=== PATIENT | female | born 1970 | race Caucasian/White ===

== ENCOUNTER → 2016-08-16 | Outpatient (CLI) | payer BC ==
--- NOTE | 2016-08-16 10:58 | RAD ---
MR of the right knee HISTORY: Worsening right knee pain with crepitus for 1 week. No known injury. TECHNIQUE: Routine multiplanar sequences were obtained. FINDINGS: Mild signal within the medial meniscus without evidence of a tear. Mild signal within the lateral meniscus with mild irregularity at the free margin at the undersurface, raising the question of a small tear. Anterior and posterior cruciate ligaments are intact. Medial collateral ligament is intact Iliotibial band unremarkable. Fibular collateral ligament, biceps femoris tendon and popliteus tendon are intact. Extensor mechanism is intact. No significant joint effusion. No evidence of osteochondral loose body. Moderate patellofemoral joint chondromalacia. No bone lesion or acute fracture. Mild intraosseous cystic change and edema at the posterior nonweightbearing medial femoral condyle. Multilobulated septated cyst or ganglion along the posterior medial femoral condyle measures altogether 3.5 cm diameter. No significant Oliver's cyst. IMPRESSION: 1. Probable small tear of the lateral meniscus. 2. Patellofemoral joint primary osteoarthritis. Electronically signed by: Rogers Rowe MD (08/16/2016 10:55 AM)
== END | disposition home or self-care (01) ==
LOC: MRI 07:41
PROVIDERS: ATTEND Physician Assistant Medical
DX: M17.11 Unilateral primary osteoarthritis, right knee (principal)
CPT/HCPCS: 73721

== ENCOUNTER → 2019-07-31 | Outpatient (CLI) | payer BC ==
--- NOTE | 2019-07-31 11:39 | RAD ---
EXAM: MRI left wrist without contrast INDICATION: Left wrist pain for 3 months. No known injury. COMPARISON: None TECHNIQUE: Multiplanar, multisequence imaging of the left wrist without contrast. FINDINGS: Bones and cartilage: No acute fracture. Marrow signal is normal. No erosions or productive changes. Articular cartilage is grossly intact. Ligaments: The lunotriquetral and scapholunate ligaments are intact. The triangular fibrocartilage complex is intact. Tendons: Mild thickening and increased signal with tiny interstitial tears of the extensor carpi ulnaris tendon. There is fluid around the tendon. The subsheath is difficult to visualize but there is no subluxation of the tendon. The extensor retinaculum appears intact. The remaining extensor and flexor tendons are intact. Other: Muscles are normal. No subcutaneous edema. Median and ulnar nerves are normal. No joint effusion. Suspect 3 x 3 mm ganglion cyst at the dorsal aspect of the quadrangular joint. IMPRESSION: 1. Tendinopathy and mild interstitial tearing of the extensor carpi ulnaris tendon with mild tenosynovitis. 2. Probable 3 mm ganglion cyst at the dorsal aspect of the quadrangular joint. Electronically signed by: Josefina Morales MD (07/31/2019 11:36 AM) [id number]
== END | disposition home or self-care (01) ==
LOC: MRI 09:00
PROVIDERS: ATTEND Physician Assistant
DX: S66.812A Strain of other specified muscles, fascia and tendons at wrist and hand level, left hand, initial encounter (principal); M65.88 Other synovitis and tenosynovitis, other site; X58.XXXA Exposure to other specified factors, initial encounter; Y93.89 Activity, other specified; Y92.89 Other specified places as the place of occurrence of the external cause; Y99.8 Other external cause status
CPT/HCPCS: 73221